=== PATIENT | female | born 1985 | race Caucasian/White ===

== ENCOUNTER → 2018-07-03 | Outpatient (CLI) | payer OTHER ==
--- NOTE | 2018-07-03 11:36 | Diagnostic Imaging Report ---
INDICATION: survey. TECHNIQUE: Multiple real-time grayscale images were obtained over the gravid uterus. COMPARISON: There are no prior studies available for comparison. FINDINGS: There is a single live fetus in breech presentation. heart motion was noted and a rate of 147 bpm was recorded. There were no abnormalities identified. The placenta is posterior and there is no previa. The amniotic fluid volume is within normal limits. The growth parameters are fairly uniform. Biometrical measurements are as follows: Biparietal 4.77 cm, age 20 weeks 3 days. Head circumference 18.05 cm, age 20 weeks 4 days. Abdominal circumference 15.91 cm, age 21 weeks 1 days. Femur length 3.47 cm, age 21 weeks 0 days. Sonographic estimate age: 20 weeks 6 days. Sonographic estimated date of delivery: 11/14/2018. Estimated Weight: 386 gm (+/- 56 gm). LMP percentile: 72%. heart rate: 147 beats per minute. number: 1 of 1. IMPRESSION: 1. There is a single live fetus approximately 20 weeks 6 days gestation + / - 1.5 weeks. EDC is 11/14/2018. 2. There are no abnormalities identified. 3. The growth parameters are fairly uniform. Dictated by: Dictated on workstation # [id number]
== END ==
LOC: RAD 10:04
PROVIDERS: ATTEND Obstetrics & Gynecology
DX: Z36.89 Encounter for other specified antenatal screening (principal); Z3A.20 20 weeks gestation of pregnancy
CPT/HCPCS: 76805

== ENCOUNTER 2018-11-19 06:00 | Inpatient (IN) | payer OTHER ==
[2018-11-19] VITALS (67 sets, daily range): BP systolic 111–170; BP diastolic 59–114
[~2018-11-19] VITALS: Ht 177.8 cm; Wt 121.3 kg
--- NOTE | 2018-11-19 06:05 | NUR ---
CRYSTAL WING presented to unit via AMBULATORY from ED, accompanied by S/O , with c/o INDUCTION. CRYSTAL WING weighed, gowned, voided, and to bed. EFHM and TOCO applied, VS taken PER THIS RN. CRYSTAL WING oriented to bed controls, call light, TV, heat, and A/C controls. FURTHER ASSESSMENTS TO FOLLOW.
[2018-11-19] MEDS ORDERED: PREN-53 PO (06:17)
[2018-11-19] MEDS ORDERED: D5 LR IV SOLUTION 1,000 ML IV ONE (06:28)
[2018-11-19] MEDS: D5 LR IV SOLUTION 1,000 ML IV SCH ×3 (06:45→20:22)
[2018-11-19 07:04] LABS: BASOPHILS % (AUTO) 0 % (0-10); EOSINOPHILS # (AUTO) 0.2 10^3/uL (0.0-0.3); EOSINOPHILS % (AUTO) 3 % (0-10); HEMATOCRIT 37 % (35-52); HEMOGLOBIN 12.9 G/DL (11.5-16.0); LYMPHOCYTES # (AUTO) 2.3 X 10^3 (1.0-4.0); LYMPHOCYTES % (AUTO) 24 % (12-44); MEAN CORPUSCULAR HEMOGLOBIN 32 PG (25-34); MEAN CORPUSCULAR HGB CONC 35 G/DL (32-36); MEAN CORPUSCULAR VOLUME 89 FL (80-99); MEAN PLATELET VOLUME 10.6 FL (7.4-10.4); MONOCYTES # (AUTO) 0.8 X 10^3 (0.0-1.0); MONOCYTES % (AUTO) 9 % (0-12); NEUTROPHILS # (AUTO) 6.3 X 10^3 (1.8-7.8); NEUTROPHILS % (AUTO) 65 % (42-75); PLATELET COUNT 207 10^3/uL (130-400); RED CELL DISTRIBUTION WIDTH 13.6 % (10.0-14.5); WHITE BLOOD COUNT 9.7 10^3/uL (4.3-11.0)
[2018-11-19] MEDS ORDERED: OXYTOCIN/NORMAL SALINE 500 ML IV SCH (07:05)
--- NOTE | 2018-11-19 07:10 | History & Physical-OB ---
OB - Chief Complaint & HPI Date/Time Date of Admission: Date of Admission: Nov 19, 2018 at 06:02 Date seen by a Provider: Nov 19, 2018 Time Seen by a Provider: 07:10 Chief Complaint/History OB-Reason for Admission/Chief: Induction of Labor Hx : 1 Hx Para: 0 Expected Date of Delivery: Nov 17, 2018 Gestational Age in Weeks: 40 Gestational Age in Days: 2 Indication for induction: post dates Admission Nurse Assessment Rev: Yes History of Labs A pos Antibody neg RI RPR NR HBsAg NR HIV NR GC neg GBS neg Allergies and Home Medications Allergies Coded Allergies: adhesive tape (Verified Allergy, Unknown, 11/19/18) Home Medications [id number]/Iron Fumarate/FA/Dss 1 Each Tablet, 1 EACH PO DAILY, (Reported) Patient Home Medication List Home Medication List Reviewed: Yes OB - History Hx of Present Care: Yes Ultrasounds: Normal mid trimester US Obstetrical Complications: None Medical Complications: None Patient Past Medical History n/a OB - Admission Exam Physical Exam HEENT: NCAT Heart: Rhythm Normal Lungs: Clear Abdomen: Gravid Extremities: Normal Reflexes: Normal Cervical Dilatation: 3cm Effacement: 75% Station: -1 Membranes: Intact Heart Rate: 130's Accelerations: Accelerations Present Decelerations: No Decelerations Short Term Variability: Present Rip Tailer Variability: Average (6-25) Contractions on Admission: 6-10 Minutes Apart Labs Laboratory Tests Test 11/19/18 06:45 Range/Units White Blood Count 9.7 4.3-11.0 10^3/uL Red Blood Count 4.10 L 4.35-5.85 10^6/uL Hemoglobin 12.9 11.5-16.0 G/DL Hematocrit 37 35-52 % Mean Corpuscular Volume 89 80-99 FL Mean Corpuscular Hemoglobin 32 25-34 PG Mean Corpuscular Hemoglobin Concent 35 32-36 G/DL Red Cell Distribution Width 13.6 10.0-14.5 % Platelet Count 207 130-400 10^3/uL Mean Platelet Volume 10.6 H 7.4-10.4 FL Neutrophils (%) (Auto) 65 42-75 % Lymphocytes (%) (Auto) 24 12-44 % Monocytes (%) (Auto) 9 0-12 % Eosinophils (%) (Auto) 3 0-10 % Basophils (%) (Auto) 0 0-10 % Neutrophils # (Auto) 6.3 1.8-7.8 X 10^3 Lymphocytes # (Auto) 2.3 1.0-4.0 X 10^3 Monocytes # (Auto) 0.8 0.0-1.0 X 10^3 Eosinophils # (Auto) 0.2 0.0-0.3 10^3/uL Basophils # (Auto) 0.0 0.0-0.1 10^3/uL OB - Assessment/Plan/Diagnosis Assessment Assessment: induction of labor Admission Dx 33 yo @40.2 Induction of labor Post dates GBS neg Admission Status: Inpatient Order (span 2 midnights) Reason for Inpatient Admission: Induction of labor at term Plan Plan: Induction Induction Method: JELLY TOVAR DO Nov 19, 2018 07:10
--- NOTE | 2018-11-19 07:30 | NUR ---
REPORT FROM RAMIREZ PONCE.
[2018-11-19] MEDS ORDERED: LIDOCAINE/EPI 2% 1:200,00 (XYLOCAINE) 10 ML VIAL ONE (10:16)
[2018-11-19] MEDS ORDERED: SUFENTA 0.6MCG/ML BUPIVA 0.125 100 ML ONE (14:20)
--- NOTE | 2018-11-19 15:15 | NUR ---
BBANDRES CRNA here for epidural placement. Procedure explained, consent reviewed and signed by anesthesia. Questions answered to patient's satisfaction. Time out taken to verify correct patient/procedure. Patient up to side of bed, assisted into sitting position. Betadine prep done x3 and sterile drape applied. Local done, see anesthesia record. Test dose given, see anesthesia record for drug and dosage. Epidural catheter secured in place. Epidural placement complete. Assisted back into bed, monitors adjusted. Epidural dosed, see anesthesia record. Epidural of Sufenta/Bupvicaine @_12 cc/hr stated per pump. Patient tolerated procedure well.
[2018-11-19] MEDS: EPIDURAL (SUFENTA 0.6MCG/ML BUPIVA 0.125%) 100 ML BAG EPI PRN ×2 (15:30→23:11)
[2018-11-19] MEDS ORDERED: fentaNYL INJECTION 100 MCG/2 ML AMP ONE (15:53)
[2018-11-19] MEDS ORDERED: BUPIVACAINE 0.25% 30 ML (SENSORCAINE) VIAL ONE (16:08)
[2018-11-19] MEDS ORDERED: LACTATED RINGERS 1,000 ML IV ONE (16:24)
[2018-11-19] MEDS ORDERED: ONDANSETRON 4 MG/2 ML (SDV) Z0FRAN IV PRN (16:30)
[2018-11-19] MEDS ORDERED: diphenhydrAMINE 50 MG/ML INJ (BENADRYL) IV PRN (16:30)
[2018-11-19] MEDS ORDERED: NALOXONE 0.4 MG/ML 1 ML (NARCAN) VIAL IV PRN ×2 (16:30)
[2018-11-19] MEDS ORDERED: METOCLOPRAMIDE INJ 10 MG/2 ML (REGLAN) IV PRN (16:30)
[2018-11-19] MEDS: CATHETER FLUSH 10 ML SYR IV SCH ×2 (20:22→23:11)
[2018-11-20] VITALS (17 sets, daily range): BP systolic 104–153; BP diastolic 56–97
[2018-11-20] MEDS ORDERED: METOCLOPRAMIDE INJ 10 MG/2 ML (REGLAN) ONE (02:24)
[2018-11-20] MEDS ORDERED: CITRIC ACID/SOB CIT (BICITRA) 30 ML UDC ONE (02:24)
[2018-11-20] MEDS ORDERED: FAMOTIDINE 20MG/2ML IV (PEPCID) ONE (02:24)
[2018-11-20] MEDS ORDERED: AMPICILLIN FOR IV USE 2,000 MG VIAL ONE (02:26)
[2018-11-20] MEDS ORDERED: ceFAZolin 2 GM/50 ML NS 50 ML ONE (02:27)
--- NOTE | 2018-11-20 02:51 | Progress Note ---
Standard Progress Note Progress Notes/Assess & Plan Date Seen by a Provider: Nov 20, 2018 Time Seen by a Provider: 14:35 Progress/Assessment & Plan Patient progressed to complete and 0 station and has pushed for an hour without progression of the skull, and swelling of the caput. The patient is showing signs of exhaustion, and FHR is now showing variables with pushing. We have tried pushing in different positions without any change in progression. I discussed with patient the option of laboring down, continuing to push, or proceeding with PLTCS. Risk reviewed in detail and consent was obtained after patient discussion with her . Will proceed with PLTCS for CPD at presentation of OR staff. JELLY HILLIARD DO Nov 20, 2018 02:51
[2018-11-20] MEDS ORDERED: MEASLES,MUMPS,RUBELLA 1 EA INJ SC SCH (03:00)
[2018-11-20] MEDS ORDERED: ONDANSETRON 4 MG/2 ML (SDV) Z0FRAN IVP PRN (03:00)
[2018-11-20] MEDS ORDERED: TETANUS,DIPTH,PERTUSS P/F (BOOSTRIX) 0.5 ML VIAL IM SCH (03:00)
[2018-11-20] MEDS ORDERED: HYDROmorphone 2 MG/ML VIAL (DILAUDID) IV PRN (03:00)
--- NOTE | 2018-11-20 03:02 | Discharge Inst-Women's Service ---
Discharge Inst-Women's Serv Depart Medication/Instructions New, Converted or Re-Newed RX: RX on Chart Final Diagnosis POD 2 PLTCS Problems Reviewed?: Yes Consults/Follow Up Additional Follow Up: Yes Orders/Referrals Dr. Li in 7-10 days and in 6 weeks. Activity Activity: Activity as Tolerated Driving Instructions: No Driving for 1 Week NO SMOKING: NO SMOKING Nothing Inside Vagina: No Douching, No Cleora, No Tampons Diet Discharge Diet: No Restrictions Symptoms to Report to : Bleeding Excessive, Pain Increased, Fever Over 101 Degrees F, Vaginal Bleeding Increase, Questions/Concerns For Any Problems or Questions: Contact Your Physician Skin/Wound Care Infection Signs and Symptoms: Increased Redness, Foul Odor of Wound, Increased Drainage, Skin Itchy or Has a Rash, Increased Swelling, Temperature Above 101 F Operative Area Clean and Dry: Keep Incision Clean/Dry Stitches/Alfredo/Dermabond: Dermabond, Care of Stitches Bathing Instructions: JELLY Hernandez DO Nov 20, 2018 03:01
[2018-11-20] MEDS ORDERED: DOCU100C37 PO (03:10)
[2018-11-20] MEDS ORDERED: IBUP-844 PO (03:10)
[2018-11-20] MEDS ORDERED: ACHD5005 PO (03:10)
[2018-11-20] MEDS ORDERED: LIDOCAINE PF 2% 5 ML (XYLOCAINE) VIAL ONE ×3 (03:12→04:01)
[2018-11-20] MEDS ORDERED: fentaNYL INJECTION 100 MCG/2 ML AMP ONE ×2 (03:13→03:46)
[2018-11-20] MEDS ORDERED: KETOROLAC 30 MG/ML VIAL ONE (04:24)
[2018-11-20] MEDS ORDERED: NS (IVPB) 100 ML ONE (04:26)
[2018-11-20] MEDS ORDERED: BUPIVACAINE 0.5% 30 ML (SENSORCAINE) VIAL ONE (04:32)
[2018-11-20] MEDS: KETOROLAC 30 MG/ML VIAL IVP PRN ×3 (04:41→18:20)
--- NOTE | 2018-11-20 05:22 | NUR ---
Pt moved to post room, 307 via cart from recovery after . performed after 1 hour of vigrous pushing by pt with no result. position presented OP and with expectation of large infant called per Pt and Dr Li. Pt comfortable at this time with infant in arms. Pt feeling some cramping with feeding.
--- NOTE | 2018-11-20 05:58 | OPERATIVE REPORT ---
DATE OF SERVICE: PREOPERATIVE DIAGNOSES: 1. A 33-year-old G1, P0 at 40 weeks and 3 days gestation. 2. Cephalopelvic disproportion. POSTOPERATIVE DIAGNOSES: 1. A 33-year-old G1, P0 at 40 weeks and 3 days gestation. 2. Cephalopelvic disproportion. PROCEDURE: Primary low transverse section. SURGEON: Oneal Li DO ANESTHESIA: Epidural, which was bolused. ESTIMATED BLOOD LOSS: 500 mL. URINE OUTPUT: 300 mL, clear at the end of the procedure. FLUIDS: 1000 mL of lactated Ringer's solution. FINDINGS: A live male , weighing 10 pounds 6 ounces, Apgars of 9 and 9. Grossly normal appearing uterus, bilateral fallopian tubes and ovaries. SPECIMEN SENT: Placenta. INDICATIONS FOR PROCEDURE: This patient was admitted for induction of labor with a favorable cervix and a Le score of 11 for postdates. She was 3 cm on admission for induction. AROM was performed. Pitocin augmentation was used throughout the day. An epidural was received for analgesia and she progressed to complete and 0 station and proceeded with not only laboring down, but pushing for over an hour without any progression in station. Due to concerns of cephalopelvic disproportion, I discussed with the patient proceeding with delivery. Risks of procedure were discussed with the patient in detail and all of her questions were answered with her present in the preoperative area, consent was obtained. The patient was then taken to the operating room. OPERATIVE REPORT IN DETAIL: Once in the operating room, a spinal epidural analgesia was bolused and found to be adequate. She was placed in supine position with a leftward tilt, prepped and draped in normal sterile fashion. After anesthesia was tested and timeout was performed, a Pfannenstiel skin incision was made with a knife and carried down to underlying fascia using Bovie cautery. The fascial incision extended laterally using Bovie cautery. Superior aspect of fascial incision was then grasped with Tanisha clamps, tented up and dissected off the underlying rectus muscles. The inferior aspect of the fascial incision was then grasped with Tanisha clamps, tented up and dissected off the underlying rectus muscles. The rectus muscles were dissected down in the midline using Metzenbaum scissors, which exposed the peritoneum, which I entered bluntly and extended using blunt traction. An Gerald ring retractor was placed in the peritoneal incision, which offered excellent lateral sidewall retraction. I then made a low transverse incision to the vesicouterine peritoneum and bluntly dissected off the lower uterine segment, creating a bladder flap. The myotomy was then continued until membranes were encountered, at which point, I extended the uterine incision laterally and superiorly using bandage scissors. The infant was found in the vertex presentation, occiput posterior. I put my hand beneath the 's head and elevated up the incision where it was delivered through the incision to the point of the brow, but there is retention of the head in the incision. I asked to extract the from that point using very gentle suction with the [employer] suction extractor, but this was the minimal amount of force just enough to completely deliver the head. The nares and oropharynx were then bulb suctioned at delivery. Anterior and posterior shoulders were delivered. was then brought to the operative field where the cord was doubly clamped and cut and was handed off to waiting nurses in attendance. Cord blood was collected; 3-vessel cord with intact placenta was delivered spontaneously thereafter. IV Pitocin was initiated to facilitate uterine contraction. Uterine fundus became firm with bimanual massage. Uterus was then exteriorized and cleared off all endometrial clots and debris. I then proceeded with closing the uterine incision using 0 Vicryl suture in running locked fashion. Second layer of imbricating 0 Monocryl was placed. Excellent hemostasis was noted after doing this. I then placed the uterus back within the pelvis and copiously irrigated the pelvis using normal saline. Once again, there was no active bleeding noted from any of my dissection planes. I placed Interceed antiadhesive over my low transverse incision and proceeded with closing the peritoneum using 3-0 Vicryl suture in a running fashion. Rectus muscle was reapproximated using 3-0 Vicryl suture in interrupted fashion. The fascia was reapproximated using 0 Vicryl suture in a running fashion. The subcutaneous tissue was reapproximated using 3-0 plain in an interrupted subcutaneous stitch and the skin was reapproximated using 4-0 Monocryl in a running subcuticular. Dermabond was applied to incision. A sterile dressing was adhesed with white tape. The patient tolerated the procedure well and was taken to recovery area in stable condition. Lap and sponge counts were correct at the end of the procedure. Instrument count was correct as well. Two grams of Ancef was given preoperatively for infection prophylaxis. Job ID: [id number] DocumentID: [id number] Dictated Date: 11/20/2018 04:36:37 Refrigeration Mechanic Helper Date: 11/20/2018 05:57:57 Dictated By: DO PATRICK PEARCE
[2018-11-20] MEDS ORDERED: CATHETER FLUSH 10 ML SYR IV SCH (06:00)
[2018-11-20] MEDS: OXYTOCIN/NORMAL SALINE 500 ML IV SCH ×2 (06:05→11:10)
[2018-11-20] MEDS: CATHETER FLUSH 10 ML SYR IV SCH (06:06)
[2018-11-20] MEDS: IBUPROFEN 600 MG (MOTRIN) TAB PO SCH (06:08)
[2018-11-20] MEDS: DOCUSATE SODIUM 100 MG (COLACE) CAP PO SCH ×2 (08:10→20:32)
[2018-11-20] MEDS: HYDROcodone/APAP 5 MG/325 MG (LORTAB) TAB PO PRN ×3 (08:15→20:32)
--- NOTE | 2018-11-20 12:00 | NUR ---
Up to BR with assistance x1. Gait steady, denies dizziness. Small amount of lochia noted running down leg. Voids 200ml. No clots noted. Pericare provided. New SCDs put on upon return to bed. Tarsha. well.
--- NOTE | 2018-11-20 12:11 | Anesthesia-Regional Post-Op ---
Regional Patient Condition Mental Status: Alert, Oriented x3 Circulation: Same as Pre-Op Headache: Absent Sensation: Full Recovery Motor Block: Absent Post Op Complications Complications None Follow Up Care/Instructions Patient Instructions None needed. Anesthesia/Patient Condition Patient is doing well, C/O abd pain, stable vital signs, no apparent adverse anesthesia problems. She doesn't believe the TAP block worked well due to her abdominal pain as her sensation after labor epidural returned. She is ambulating without difficulty. CY AMIN DO Nov 20, 2018 12:11
--- NOTE | 2018-11-20 13:50 | NUR ---
Complains of vaginal bleeding. Fundal check done. Fundus firm and under 1. Scant amount of lochia noted on pad.
[2018-11-20] MEDS ORDERED: SIMETHICONE 80 MG (MYLICON) CHEW ONE (19:37)
--- NOTE | 2018-11-20 19:38 | NUR ---
bedside report received from Kuldeep. plan of care discussed with pt. pt is getting ready to eat meal. Will put lesson instructor light when finished to perform assessment.
[2018-11-20] MEDS ORDERED: SIMETHICONE 80 MG (MYLICON) CHEW PO PRN (19:45)
--- NOTE | 2018-11-20 20:46 | NUR ---
assessment completed. pt denies any needs at this time. will continue to monitor.
[2018-11-21] MEDS: KETOROLAC 30 MG/ML VIAL IVP PRN (00:27)
[2018-11-21 01:00] VITALS: BP 110/70
[2018-11-21] MEDS: HYDROcodone/APAP 5 MG/325 MG (LORTAB) TAB PO PRN ×4 (02:46→20:57)
--- NOTE | 2018-11-21 05:09 | NUR ---
pt sent nb back to [facility] to rest. pt wishes to leave dsg on at this time. she plans to shower after the 8am feeding and then have dsg removed. pt also wishes to not have bedside report this am so she can rest.
[2018-11-21] MEDS: IBUPROFEN 600 MG (MOTRIN) TAB PO SCH ×4 (05:27→23:57)
[2018-11-21 06:14] LABS: BASOPHILS % (AUTO) 0 % (0-10); EOSINOPHILS # (AUTO) 0.1 10^3/uL (0.0-0.3); EOSINOPHILS % (AUTO) 1 % (0-10); HEMATOCRIT 31 % (35-52); HEMOGLOBIN 10.6 G/DL (11.5-16.0); LYMPHOCYTES # (AUTO) 2.3 X 10^3 (1.0-4.0); LYMPHOCYTES % (AUTO) 16 % (12-44); MEAN CORPUSCULAR HEMOGLOBIN 31 PG (25-34); MEAN CORPUSCULAR HGB CONC 34 G/DL (32-36); MEAN CORPUSCULAR VOLUME 91 FL (80-99); MEAN PLATELET VOLUME 10.5 FL (7.4-10.4); MONOCYTES % (AUTO) 7 % (0-12); NEUTROPHILS # (AUTO) 10.8 X 10^3 (1.8-7.8); NEUTROPHILS % (AUTO) 76 % (42-75); PLATELET COUNT 167 10^3/uL (130-400); RED CELL DISTRIBUTION WIDTH 14.2 % (10.0-14.5); WHITE BLOOD COUNT 14.2 10^3/uL (4.3-11.0)
[2018-11-21] MEDS: DOCUSATE SODIUM 100 MG (COLACE) CAP PO SCH ×2 (08:21→20:57)
[2018-11-21 08:25] VITALS: BP 126/81
--- NOTE | 2018-11-21 08:30 | NUR ---
THIS RN TO BEDSIDE, SELF INTRODUCED. MEDS GIVEN PO; SEE EMAR FOR FURTHER. VS OBTAINED. PT'S S/O AND FATHER AT THE BEDSIDE. SHOWER SET UP. PT PREPPING TO B/F , NIPPLE SHIELD GIVEN PER REQUEST. QUESTIONS ANSWERED. FRESH ICE WATER PROVIDED. CALL LIGHT WITHIN REACH.
--- NOTE | 2018-11-21 09:04 | NUR ---
PT GETTING UP TO SHOWER. QUESTIONS ANSWERED RE: SHOWER AND INCISION. S/O AT THE BEDSIDE. NO FURTHER NEEDS VOICED.
--- NOTE | 2018-11-21 10:40 | NUR ---
PT , MINIMAL ASSISTANCE PROVIDED. SUCCESSFUL LATCH AND ACTIVE SUCKLING NOTED. S/O AT THE BEDSIDE.
--- NOTE | 2018-11-21 11:30 | NUR ---
SHOWER COMPLETE. PT REMOVED INCISIONAL DRESSING WHILE SHE WAS SHOWERING. ASSESSMENT COMPLETED; SEE INTERVENTION FOR FURTHER. FLUFF GAUZE IN PLACE PER REQUEST FOR COMFORT. CALL LIGHT WITHIN REACH.
[2018-11-21 12:43] VITALS: BP 125/73
--- NOTE | 2018-11-21 12:45 | NUR ---
PT IN BED, HOLDING . VISITOR AND MOTHER AT THE BEDSIDE. ROUTINE MOTRIN GIVEN PO; SEE EMAR FOR FURTHER. VS OBTAINED. NO NEEDS VOICED.
--- NOTE | 2018-11-21 14:55 | NUR ---
PT SITTING UP IN BED, (1) LORTAB GIVEN PER REQUEST; SEE EMAR FOR FURTHER. PT'S S/O, MOTHER AND A VISITOR AT THE BEDSIDE. LUNCH TRAY REMOVED FROM ROOM. NO FURTHER NEEDS VOICED.
--- NOTE | 2018-11-21 15:06 | NUR ---
DR. HILLIARD TO PT'S BEDSIDE.
--- NOTE | 2018-11-21 18:22 | NUR ---
PT UP AMBULATING HALLWAYS WITH S/O.
[2018-11-21 18:30] VITALS: BP 111/68
--- NOTE | 2018-11-21 19:30 | NUR ---
Bedside report received from Drew. pt and family sitting around room. patient . plan of care discussed. questions answered concerning 2nd . 2nd night paper provided. pt/family deny any further needs will continue to monitor.
--- NOTE | 2018-11-21 20:44 | Postpartum Progress Note ---
Note Note Day # 1 Subjective: Patient is without complaints. Ambulating, voiding. Tolerating a regular diet without nausea or vomiting. Normal lochia. Pain is well controlled with oral pain medications. Objective: Physical Exam: General - Alert and oriented, no apparent distress Abdomen - Soft, appropriately tender to palpation, non-distended, fundus firm at umbilicus Extremities - no edema, negative Cristiano's bilaterally Incision- c/d/i Assessment: POD 1 PLTCS Acute blood loss anemia Plan: Routine care. Encourage breast feeding. Encourage ambulation. Ferrous sulfate supplementation. Plan for discharge tomorrow Vitals - Labs Vital Signs - I&O Vital Signs Date Time Temp Pulse Resp B/P (MAP) Pulse Ox O2 Delivery O2 Flow Rate FiO2 11/21/18 18:30 97.9 100 18 111/68 (82) 97 Room Air 11/21/18 12:43 98.3 110 18 125/73 (90) 98 Room Air 11/21/18 08:25 97.9 92 18 126/81 (96) 95 Room Air 11/21/18 01:00 97.9 88 18 110/70 (83) Room Air 11/20/18 20:47 98.0 104 18 114/65 (81) 97 Room Air I & O 11/21/18 07:00 Intake Total 3000 ml Output Total 4425 ml Balance -1425 ml Labs Laboratory Tests 11/21/18 05:55: White Blood Count 14.2H, Red Blood Count 3.40L, Hemoglobin 10.6L, Hematocrit 31L , Mean Corpuscular Volume 91, Mean Corpuscular Hemoglobin 31, Mean Corpuscular Hemoglobin Concent 34, Red Cell Distribution Width 14.2, Platelet Count 167, Mean Platelet Volume 10.5H, Neutrophils (%) (Auto) 76H, Lymphocytes (%) (Auto) 16, Monocytes (%) (Auto) 7, Eosinophils (%) (Auto) 1, Basophils (%) (Auto) 0, Neutrophils # (Auto) 10.8H, Lymphocytes # (Auto) 2.3, Monocytes # (Auto) 1.0, Eosinophils # (Auto) 0.1, Basophils # (Auto) 0.0 JELLY HILLIARD DO Nov 21, 2018 20:44
--- NOTE | 2018-11-21 21:00 | NUR ---
pt just finished dinner. assessment completed. pt requesting more pads. pads and fresh ice water given. pt denies any further needs at this time. will continue to monitor.
[2018-11-21 21:47] VITALS: BP 121/74
[2018-11-22] MEDS: HYDROcodone/APAP 5 MG/325 MG (LORTAB) TAB PO PRN ×2 (03:24→09:32)
[2018-11-22 04:17] VITALS: BP 124/80
[2018-11-22] MEDS: IBUPROFEN 600 MG (MOTRIN) TAB PO SCH ×2 (05:30→12:27)
--- NOTE | 2018-11-22 08:12 | NUR ---
PT UP TO THE BATHROOM. RAJINDER NURSERY RN AT BEDSIDE WITH .
[2018-11-22] MEDS: DOCUSATE SODIUM 100 MG (COLACE) CAP PO SCH (09:32)
[2018-11-22 09:35] VITALS: BP 118/79
--- NOTE | 2018-11-22 09:40 | NUR ---
THIS RN TO BEDSIDE, PT UP IN ROOM BEFORE SITTING ON THE SIDE OF THE BED. MEDS GIVEN PO; SEE EMAR FOR FURTHER. VS OBTAINED. INITIAL SHIFT ASSESSMENT COMPLETED; SEE INTERVENTION FOR FURTHER. PT PREPPING TO TAKE A SHOWER. NO FURTHER NEEDS VOICED AT THIS TIME. S/O AT THE BEDSIDE. CALL LIGHT WITHIN REACH.
--- NOTE | 2018-11-22 10:16 | NUR ---
PT UP IN THE SHOWER. BED LINENS CHANGED. THIS RN CALLED TO SHOWER, PT PASSED A SMALL CLOT (QUARTER SIZE). REASSURANCE GIVEN. PT DENIES ANY FURTHER NEEDS. PT'S S/O AND MOTHER AT THE BEDSIDE.
--- NOTE | 2018-11-22 11:17 | NUR ---
ROOM SERVICE DELIVERING TRAY TO ROOM. FRANTZ MACARIO RN IS AT THE BEDSIDE.
--- NOTE | 2018-11-22 12:02 | NUR ---
PT UP AMBULATING HALLWAYS WITH S/O.
--- NOTE | 2018-11-22 12:30 | NUR ---
PT UP IN THE BATHROOM BLOW DRYING HER HAIR. ROUTINE MOTRIN GIVEN PO; SEE EMAR FOR FURTHER. FRESH ICE WATER PROVIDED. VISITORS PRESENT. NO FURTHER NEEDS VOICED.
--- NOTE | 2018-11-22 13:16 | Postpartum Progress Note ---
Note Note Day # 2 Subjective: Patient is without complaints. Ambulating, voiding. Tolerating a regular diet without nausea or vomiting. Normal lochia. Pain is well controlled with oral pain medications. Objective: Physical Exam: General - Alert and oriented, no apparent distress Abdomen - Soft, appropriately tender to palpation, non-distended, fundus firm at umbilicus Extremities - no edema, negative Cristiano's bilaterally Incision- c/d/i Assessment: POD 2 PLTCS Plan: Routine care. Encourage breast feeding. Encourage ambulation. Ferrous sulfate supplementation. Plan for discharge today Vitals - Labs Vital Signs - I&O Vital Signs Date Time Temp Pulse Resp B/P (MAP) Pulse Ox O2 Delivery O2 Flow Rate FiO2 11/22/18 09:35 97.8 94 18 118/79 (92) 97 Room Air 11/22/18 04:17 97.8 97 18 124/80 (95) 97 Room Air 11/21/18 21:47 98.0 97 18 121/74 (90) 97 Room Air 11/21/18 18:30 97.9 100 18 111/68 (82) 97 Room Air JELLY HILLIARD DO Nov 22, 2018 13:16
--- NOTE | 2018-11-22 14:15 | NUR ---
PT . S/O AND MOTHER AT THE BEDSIDE. DISCHARGE INSTRUCTIONS PROVIDED AND REVIEWED WITH PT, PT VERBALIZES UNDERSTANDING AND DENIES ANY QUESTIONS AT THIS TIME. PAPER SIGNED.
--- NOTE | 2018-11-22 15:15 | NUR ---
PT DISCHARGED FROM -[facility] TO PERSONAL AUTO VIA AMBULATORY IN STABLE CONDITION ACC BY S/O, MOTHER, AND John JEAN BAPTISTE RN.
== END 2018-11-22 15:15 | disposition home or self-care (01) | DRG 787 ==
LOC: LDRP 06:02
PROVIDERS: ADMIT Obstetrics & Gynecology; ATTEND Obstetrics & Gynecology
PROC: 10907ZC Drainage of Amniotic Fluid, Therapeutic from Products of Conception, Via Natural or Artificial Opening (ICD-10-PCS; 2018-11-19)
PROC: 10D00Z1 Extraction of Products of Conception, Low, Open Approach (ICD-10-PCS; principal; 2018-11-20 03:32)
DX: O48.0 Post-term pregnancy (principal); O65.4 Obstructed labor due to fetopelvic disproportion, unspecified; O90.81 Anemia of the puerperium; D62 Acute posthemorrhagic anemia; Z3A.40 40 weeks gestation of pregnancy; Z37.0 Single live birth; Z91.048 Other nonmedicinal substance allergy status
CPT/HCPCS: 36415; 85025; 86850; 86900; 86901; 94664

== ENCOUNTER → 2019-12-10 | Outpatient (CLI) | payer OTHER ==
[~2019-12-10] MED LIST: ACHD5005 PO; DOCU100C37 PO; IBUP-844 PO; PREN-53 PO
--- NOTE | 2019-12-10 12:42 | Diagnostic Imaging Report ---
INDICATION: survey. TECHNIQUE: Multiple real-time grayscale images were obtained over the gravid uterus. COMPARISON: None FINDINGS: There is a single live fetus in a cephalic presentation. heart rate was recorded at 152 bpm. Placenta is anterior. No previa is identified. Amniotic fluid volume appears normal. Cervical length is approximately 6.1 cm. survey demonstrates kidneys, bladder and stomach to be unremarkable. There is a four-chamber heart. There is a three-vessel cord with normal insertion. brain anatomy and spine are somewhat limited due to position. Biometrical measurements are as follows: Biparietal 4.97 cm, age 21 weeks 1 days. Head circumference 18.89 cm, age 21 weeks 2 days. Abdominal circumference 16.23 cm, age 21 weeks 3 days. Femur length 3.67 cm, age 21 weeks 5 days. Sonographic estimate age: 21 weeks 3 days. Sonographic estimated date of delivery: 04/18/2020. Estimated Weight: 423 gm (+/- 62 gm). LMP percentile: 68%. heart rate: 152 beats per minute. number: 1 of 1. IMPRESSION: Single live IUP at 21 weeks 3 days gestational age with estimated date of confinement sonographically of 04/18/2020. No complicating features are seen. survey is unremarkable, although head anatomy and spine evaluation is somewhat limited due to position. Dictated by: Dictated on workstation # [id number]
== END ==
LOC: RAD 09:47
PROVIDERS: ATTEND Obstetrics & Gynecology
DX: Z36.89 Encounter for other specified antenatal screening (principal); Z3A.21 21 weeks gestation of pregnancy
CPT/HCPCS: 76805

== ENCOUNTER 2020-04-10 05:38 | Outpatient (RCR) | payer OTHER ==
[~2020-04-10] VITALS: Ht 177.8 cm; Wt 127.3 kg
[2020-04-10] MEDS ORDERED: ceFAZolin 2 GM IV Premixed 50 ML IV ONE (11:15)
[2020-04-10] MEDS ORDERED: PNV1TABL9 PO (11:21)
== END 2020-04-10 11:25 | disposition home or self-care (01) ==
LOC: PREOP 05:38
PROVIDERS: ATTEND Obstetrics & Gynecology
DX: Z01.812 Encounter for preprocedural laboratory examination (principal); Z53.8 Procedure and treatment not carried out for other reasons

== ENCOUNTER 2020-04-17 07:08 | Inpatient (IN) | payer OTHER ==
[2020-04-17] VITALS (16 sets, daily range): BP systolic 115–136; BP diastolic 63–89
[~2020-04-17] VITALS: Ht 177.8 cm; Wt 128.9 kg
[~2020-04-17 07:08] MED LIST changes: +PNV1TABL9 PO
--- NOTE | 2020-04-17 07:14 | NUR ---
CRYSTAL WING presented to unit from Home, accompanied by , with c/o PREVIOUS Section. CRYSTAL WING weighed, gowned, voided, and to bed. EFHM and TOCO applied, VS taken. CRYSTAL WING oriented to bed controls, call light, TV, heat, and A/C controls.
--- NOTE | 2020-04-17 07:37 | History & Physical-OB ---
OB - Chief Complaint & HPI Date/Time Date of Admission: Date of Admission: Apr 17, 2020 at 07:08 Date seen by a Provider: Apr 17, 2020 Time Seen by a Provider: 07:30 Chief Complaint/History OB-Reason for Admission/Chief: Section Hx : 2 Hx Para: 1 Expected Date of Delivery: Apr 21, 2020 Gestational Age in Weeks: 39 Gestational Age in Days: 3 Indication for : desires repeat Admission Nurse Assessment Rev: Yes History of Labs A pos Antibody neg RI RPR NR HIV NR HBsAg NR GC neg GBS neg FFC DNA + for possible XXX Allergies and Home Medications Allergies Coded Allergies: adhesive tape (Verified Allergy, Unknown, 11/19/18) latex (Verified Allergy, Unknown, Rash, 04/10/20) Home Medications Pnv Cmb#21/Iron/Folic Acid 1 Each Tablet, 1 EACH PO DAILY, (Reported) Patient Home Medication List Home Medication List Reviewed: Yes OB - History Hx of Present Care: Yes Ultrasounds: Normal mid trimester US Obstetrical Complications: None Medical Complications: None Patient Past Medical History n/a Immunizations Date of Influenza Vaccine: Jan 13, 2020 OB - Admission Exam Physical Exam HEENT: NCAT Heart: Rhythm Normal Lungs: Clear Abdomen: Gravid Extremities: Normal Reflexes: Normal Membranes: Intact Heart Rate: 130's Accelerations: Accelerations Present Decelerations: No Decelerations Short Term Variability: Present Industrial Gas Service Helper Variability: Average (6-25) Contractions on Admission: >10 Minutes Apart Intensity: Mild OB - Assessment/Plan/Diagnosis Assessment Assessment: section Admission Dx 34 yo @ 39 weeks Previous XXX noted on FFC DNA GBS neg Admission Status: Inpatient Order (span 2 midnights) Reason for Inpatient Admission: Repeat Plan Plan: Section JELLY HILLIARD DO Apr 17, 2020 07:37
[2020-04-17] MEDS ORDERED: CATHETER FLUSH 10 ML SYR IV PRN (08:00)
[2020-04-17] MEDS ORDERED: FAMOTIDINE 20MG/2ML IV (PEPCID) IV ONE (08:00)
[2020-04-17] MEDS ORDERED: ONDANSETRON 4 MG/2 ML (SDV) Z0FRAN IVP PRN (08:00)
[2020-04-17] MEDS ORDERED: CITRIC ACID/SOB CIT (BICITRA) 30 ML UDC PO ONE (08:00)
[2020-04-17] MEDS ORDERED: KETOROLAC 30 MG/ML VIAL IV SCH (08:00)
[2020-04-17] MEDS ORDERED: TETANUS,DIPTH,PERTUSS P/F (BOOSTRIX) 0.5 ML VIAL IM SCH (08:00)
[2020-04-17] MEDS ORDERED: MEASLES,MUMPS,RUBELLA 1 EA INJ SC SCH (08:00)
[2020-04-17] MEDS ORDERED: METOCLOPRAMIDE INJ 10 MG/2 ML (REGLAN) IV ONE (08:00)
[2020-04-17] MEDS ORDERED: ceFAZolin 2 GM IV Premixed 50 ML IV ONE (08:00)
[2020-04-17] MEDS: LACTATED RINGERS 1,000 ML IV PRN ×2 (08:04→08:56)
[2020-04-17 08:17] LABS: BASOPHILS % (AUTO) 0 % (0-10); EOSINOPHILS # (AUTO) 0.3 10^3/uL (0.0-0.3); EOSINOPHILS % (AUTO) 3 % (0-10); HEMATOCRIT 35 % (35-52); HEMOGLOBIN 11.6 g/dL (11.5-16.0); LYMPHOCYTES # (AUTO) 2.4 10^3/uL (1.0-4.0); LYMPHOCYTES % (AUTO) 24 % (12-44); MEAN CORPUSCULAR HEMOGLOBIN 30 pg (25-34); MEAN CORPUSCULAR HGB CONC 34 g/dL (32-36); MEAN CORPUSCULAR VOLUME 88 fL (80-99); MEAN PLATELET VOLUME 10.4 fL (9.0-12.2); MONOCYTES # (AUTO) 0.7 10^3/uL (0.0-1.0); MONOCYTES % (AUTO) 7 % (0-12); NEUTROPHILS # (AUTO) 6.5 10^3/uL (1.8-7.8); NEUTROPHILS % (AUTO) 65 % (42-75); PLATELET COUNT 244 10^3/uL (130-400); WHITE BLOOD COUNT 10.1 10^3/uL (4.3-11.0)
--- NOTE | 2020-04-17 09:07 | Discharge Inst-Women's Service ---
Discharge Inst-Women's Serv Depart Medication/Instructions New, Converted or Re-Newed RX: RX on Chart Problems Reviewed?: Yes Consults/Follow Up Additional Follow Up: Yes Activity Activity: Activity as Tolerated NO SMOKING: NO SMOKING Nothing Inside Vagina: No Douching, No [address], No Tampons Diet Discharge Diet: No Restrictions Symptoms to Report to : Bleeding Excessive, Pain Increased, Fever Over 101 Degrees F, Vaginal Bleeding Increase, Questions/Concerns For Any Problems or Questions: Contact Your Physician Skin/Wound Care Infection Signs and Symptoms: Increased Redness, Foul Odor of Wound, Increased Drainage, Skin Itchy or Has a Rash, Increased Swelling, Temperature Above 101 F Operative Area Clean and Dry: Keep Incision Clean/Dry Stitches/[place]/Dermabond: Dermabond, Care of Stitches Bathing Instructions: JELLY Hernandez DO Apr 17, 2020 09:07
[2020-04-17] MEDS ORDERED: IBUP-844 PO (09:12)
[2020-04-17] MEDS ORDERED: DCS100C PO (09:12)
[2020-04-17] MEDS ORDERED: ACHD5005 PO (09:12)
[2020-04-17] MEDS ORDERED: fentaNYL INJECTION 100 MCG/2 ML AMP ONE (09:34)
[2020-04-17] MEDS ORDERED: OXYTOCIN PRE-MIX DRIP 500 ML IV ONE (09:34)
--- NOTE | 2020-04-17 10:08 | NUR ---
Patient to OB OR via ambulation accompanied by OR staff.
[2020-04-17] MEDS ORDERED: ONDANSETRON 4 MG/2 ML (SDV) Z0FRAN ONE (10:43)
[2020-04-17] MEDS: OXYTOCIN PRE-MIX DRIP 500 ML IV SCH ×2 (10:47→13:18)
[2020-04-17] MEDS ORDERED: PHENYLEPHRINE 100 MCG/ML 10 ML (ANESTHESIA) SYR ONE (11:09)
[2020-04-17] MEDS: KETOROLAC 30 MG/ML VIAL IV SCH ×3 (11:23→23:17)
[2020-04-17] MEDS ORDERED: BUPIVACAINE 0.5% 30 ML (SENSORCAINE) VIAL ONE (11:30)
[2020-04-17] MEDS ORDERED: METOCLOPRAMIDE 10 MG (REGLAN) TAB PO SCH (12:00)
--- NOTE | 2020-04-17 12:05 | NUR ---
Patient arrived to Women's Services room 313 via bed from OB PAR. Patient oriented to room and report received from Melvin Sinclair RN. Care of patient assumed.
[2020-04-17] MEDS: DOCUSATE SODIUM 100 MG (COLACE) CAP PO SCH ×2 (12:47→21:26)
[2020-04-17] MEDS: METOCLOPRAMIDE 10 MG (REGLAN) TAB PO SCH ×3 (12:47→23:21)
[2020-04-17] MEDS ORDERED: CATHETER FLUSH 10 ML SYR IV SCH (14:00)
--- NOTE | 2020-04-17 14:00 | NUR ---
Patient assisted up to restroom. + void noted. Pericare completed and clean pad and panties applied. Patient ambulated back to bed without difficulty. Plan of care reviewed with patient. Patient verbalizes understanding and questions answered.
--- NOTE | 2020-04-17 14:16 | NUR ---
Incentive spirometry reviewed with patient. Patient able to return demonstration.
--- NOTE | 2020-04-17 17:20 | NUR ---
IV saline locked.
--- NOTE | 2020-04-17 18:31 | OPERATIVE REPORT ---
DATE OF SERVICE: PREOPERATIVE DIAGNOSES: 1. A 34-year-old G2, P1 at 39 weeks gestation. 2. Previous section. POSTOPERATIVE DIAGNOSES: 1. A 34-year-old G2, P1 at 39 weeks gestation. 2. Previous section. PROCEDURE: Repeat low transverse section. SURGEON: Oneal Li DO DROP BOARD WORKER: Lizzie Phipps DNP, who was necessary for manipulation and retraction throughout the procedure. ANESTHESIA: Spinal. ESTIMATED BLOOD LOSS: 500 mL. URINE OUTPUT: 50 mL clear at the end of the procedure. FLUIDS: 1400 mL lactated Ringer's solution. FINDINGS: A live female infant weighing 9 pounds 8 ounces, Apgars of 8 and 9. Grossly normal appearing uterus, bilateral fallopian tubes and ovaries. SPECIMEN SENT: Placenta. INDICATIONS FOR PROCEDURE: This 34-year-old female is a patient who had sought care in my office. She had a previous and we had discussed in the office proceeding with repeat . Throughout her care, we discussed the repeat risks and benefits as well as the alternatives, risks, of including risk of bleeding, infection, damage to surrounding structures including, but not limited to bowel, bladder, ureter, kidneys, possible need for reoperation, postoperative complications that may occur, risk from anesthesia and even were all discussed with the patient in detail. 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 Otherwise, her was uncomplicated. For this reason, we did surveillance throughout the third trimester, which was all within normal limits. After all the patient's questions were answered, consent was obtained in the preoperative area, the patient was taken to the operating room. OPERATIVE REPORT IN DETAIL: Once in the operating room, spinal analgesia was found to be adequate, placed in the supine position with leftward tilt, prepped and draped in normal sterile fashion where a timeout was performed and anesthesia was tested. Then made a Pfannenstiel skin incision through the previously existing scar using knife and carried down to underlying fascia using Bovie cautery. The fascial incision extended laterally using Bovie cautery. Superior aspect of fascial incision was then grasped with Tanisha clamps, tented up and dissected off the underlying rectus muscles. The inferior aspect of the fascial incision was then grasped with Tanisha clamps, tented up and dissected off the underlying rectus muscles. Rectus muscles were then dissected down the midline using Mooney scissors, which exposed the peritoneum, which I entered bluntly and extended using blunt traction. Gerald ring retractor was placed in the peritoneal incision, which offered excellent lateral sidewall retraction. I then identified the lower uterine segment, which was found to be thinned out and make a low transverse incision through the vesicouterine peritoneum and bluntly dissected off the lower uterine segment. I then proceeded with myotomy until membranes were visualized, at which point I extended the uterine incision laterally and superiorly using bandage scissors. Amniotomy was performed using Allis clamp. Clear fluid was noted. Infant was found in vertex presentation. With gentle fundal pressure, the 's head was elevated up the incision. I am unable to deliver the infant's head through the incision due to the size of the incision and size the infant's head. I do place a Kiwi vacuum extractor down the flexion point and able to easily deliver the 's head through the incision at that point using some gentle traction with the Kiwi vacuum extractor. Once the head was delivered, suction was released from the suction cup and nares and oropharynx were bulb suctioned. Anterior and posterior shoulders were delivered after nuchal cord was reduced x1 and the infant was then brought to the operative field with cord doubly clamped and cut and infant was handed off to waiting nurses in attendance. Cord blood was collected. Three-vessel cord with intact placenta was delivered spontaneously thereafter. IV Pitocin was initiated to facilitate uterine contraction. Uterine fundus confirmed by manual massage. Uterus was then exteriorized and cleared of endometrial clots and debris. I then proceeded to close the uterine incision using 0 Vicryl suture in running locked fashion. Second layer of imbricating 0 Monocryl was placed. Excellent hemostasis was noted after doing this. I then placed the uterus back in the pelvis and copiously irrigated the pelvis using normal saline. Once again, no active bleeding noted from any of my dissection planes. I placed Interceed antiadhesive over my low transverse incision and then removed the Gerald ring retractor. The peritoneum was then reapproximated using 3-0 Vicryl suture in running fashion. Rectus muscle reapproximated using 3-0 Vicryl suture in interrupted fashion. The fascia was reapproximated using 0 Vicryl suture in running fashion. Subcutaneous tissue was reapproximated using 3-0 plain in an interrupted subcutaneous stitch and skin reapproximated using 4-0 Monocryl running subcuticular. Dermabond was applied to incision and sterile dressing with adhesive white tape. The patient tolerated the procedure well and was taken to recovery area in stable condition. Lap and sponge counts were correct at the end of procedure. Instrument count was correct as well. Two grams of Ancef given preoperatively for infection prophylaxis. Job ID: [id number] DocumentID: [id number] Dictated Date: 04/17/2020 11:06:35 Claims Director Date: 04/17/2020 18:31:02 Dictated By: DO PATRICK PEARCE
--- NOTE | 2020-04-17 19:20 | NUR ---
Report to Shaq Horn RN.
[2020-04-17] MEDS: HYDROcodone/APAP 5 MG/325 MG (LORTAB) TAB PO PRN (21:26)
[2020-04-18] MEDS: METOCLOPRAMIDE 10 MG (REGLAN) TAB PO SCH ×4 (04:38→22:25)
[2020-04-18] MEDS: KETOROLAC 30 MG/ML VIAL IV SCH (04:38)
[2020-04-18 04:45] VITALS: BP 123/67
[2020-04-18 06:29] LABS: BASOPHILS % (AUTO) 0 % (0-10); EOSINOPHILS # (AUTO) 0.2 10^3/uL (0.0-0.3); EOSINOPHILS % (AUTO) 2 % (0-10); HEMATOCRIT 32 % (35-52); HEMOGLOBIN 10.8 g/dL (11.5-16.0); LYMPHOCYTES # (AUTO) 2.3 10^3/uL (1.0-4.0); LYMPHOCYTES % (AUTO) 22 % (12-44); MEAN CORPUSCULAR HEMOGLOBIN 30 pg (25-34); MEAN CORPUSCULAR HGB CONC 34 g/dL (32-36); MEAN CORPUSCULAR VOLUME 89 fL (80-99); MEAN PLATELET VOLUME 10.3 fL (9.0-12.2); MONOCYTES # (AUTO) 0.8 10^3/uL (0.0-1.0); MONOCYTES % (AUTO) 8 % (0-12); NEUTROPHILS # (AUTO) 7.3 10^3/uL (1.8-7.8); NEUTROPHILS % (AUTO) 67 % (42-75); PLATELET COUNT 195 10^3/uL (130-400); WHITE BLOOD COUNT 10.8 10^3/uL (4.3-11.0)
--- NOTE | 2020-04-18 06:54 | Anesthesia-Regional Post-Op ---
Regional Patient Condition Mental Status: Alert, Oriented x3 Circulation: Same as Pre-Op Headache: Absent Sensation: Full Recovery Motor Block: Absent Post Op Complications Complications None Follow Up Care/Instructions Patient Instructions None needed. Anesthesia/Patient Condition Patient is doing well, no complaints, stable vital signs, no apparent adverse anesthesia problems. No complications reported per nursing. INDER LOMBARDI CRNA Apr 18, 2020 06:54
--- NOTE | 2020-04-18 07:58 | Postpartum Progress Note ---
Note Note Day # 1 Subjective: Patient is without complaints. Ambulating, voiding. Tolerating a regular diet without nausea or vomiting. Normal lochia. Pain is well controlled with oral pain medications. Objective: Physical Exam: General - Alert and oriented, no apparent distress Abdomen - Soft, appropriately tender to palpation, non-distended, fundus firm at umbilicus Extremities - no edema, negative Cristiano's bilaterally Incision- c/d/i Assessment: POD 1 RLTCS Acute blood loss anemia Plan: Routine care. Encourage breast feeding. Encourage ambulation. Ferrous sulfate supplementation. Plan for discharge tomorrow Vitals - Labs Vital Signs - I&O Vital Signs Date Time Temp Pulse Resp B/P (MAP) Pulse Ox O2 Delivery O2 Flow Rate FiO2 04/18/20 04:45 36.4 85 18 123/67 (85) 99 04/17/20 23:30 36.3 88 18 122/68 (86) 99 04/17/20 21:15 36.2 93 18 122/64 (83) 97 Room Air 04/17/20 17:30 36.6 85 18 128/73 (91) 97 Room Air 04/17/20 14:16 36.3 100 18 117/63 (81) 95 Room Air 04/17/20 12:05 36.4 18 123/84 (97) 100 Room Air 04/17/20 12:05 Room Air 04/17/20 12:00 18 122/86 (98) 100 Room Air 04/17/20 11:55 Room Air 04/17/20 11:50 18 119/84 (96) 100 Room Air 04/17/20 11:44 Room Air 04/17/20 11:40 18 136/89 (105) 99 Room Air 04/17/20 11:30 20 117/73 (88) 99 Room Air 04/17/20 11:30 Room Air 04/17/20 11:25 18 123/72 (89) 100 Room Air 04/17/20 11:15 36.7 16 115/68 (84) 100 Room Air 04/17/20 11:15 Room Air 04/17/20 10:00 36.8 92 18 120/72 (88) Room Air 04/17/20 09:30 93 18 136/86 (103) Room Air 04/17/20 09:00 98 18 128/78 (95) Room Air 04/17/20 08:30 92 18 120/76 (91) Room Air I & O 04/18/20 06:59 Intake Total 6850 ml Output Total 3700 ml Balance 3150 ml Labs Laboratory Tests 04/18/20 06:15: White Blood Count 10.8, Red Blood Count 3.59L, Hemoglobin 10.8L, Hematocrit 32L, Mean Corpuscular Volume 89, Mean Corpuscular Hemoglobin 30, Mean Corpuscular Hemoglobin Concent 34, Red Cell Distribution Width 13.9, Platelet Count 195, Mean Platelet Volume 10.3, Immature Granulocyte % (Auto) 2, Neutrophils (%) (Auto) 67, Lymphocytes (%) (Auto) 22, Monocytes (%) (Auto) 8, Eosinophils (%) (Auto) 2, Basophils (%) (Auto) 0, Neutrophils # (Auto) 7.3, Lymphocytes # (Auto) 2.3, Monocytes # (Auto) 0.8, Eosinophils # (Auto) 0.2, Basophils # (Auto) 0.0, Immature Granulocyte # (Auto) 0.2H JELLY HILLIARD DO Apr 18, 2020 07:58
--- NOTE | 2020-04-18 08:50 | NUR ---
Breast pump to room, instructions given, pt verbalizes understanding. Towels to room for shower. Pt states having issues with infant latching on and would like to speak with [employer] consultant. No further needs at this time.
[2020-04-18] MEDS: HYDROcodone/APAP 5 MG/325 MG (LORTAB) TAB PO PRN (09:45)
[2020-04-18] MEDS: DOCUSATE SODIUM 100 MG (COLACE) CAP PO SCH ×2 (09:45→20:50)
[2020-04-18 09:54] VITALS: BP 116/80
--- NOTE | 2020-04-18 09:54 | NUR ---
AM shift assessment completed and vital signs obtained, see interventions. Plan of care reviewed with patient. Patient verbalizes understanding and questions answered. Scheduled Colace PO given. Lortab 1 PO given for patient's c/o pain rated 3/10. TDAP vaccine administered, see EMAR. VIS provided to patient.
[2020-04-18] MEDS: IBUPROFEN 600 MG (MOTRIN) TAB PO SCH ×3 (11:12→22:24)
[2020-04-18] MEDS ORDERED: IBUPROFEN 600 MG (MOTRIN) TAB PO SCH (12:00)
[2020-04-18 12:36] VITALS: BP 122/65
[2020-04-18 16:43] VITALS: BP 125/70
--- NOTE | 2020-04-18 19:30 | NUR ---
Report to Dianne Mota RN.
[2020-04-18 22:25] VITALS: BP 123/75
[2020-04-19 05:11] VITALS: BP 118/79
[2020-04-19] MEDS: IBUPROFEN 600 MG (MOTRIN) TAB PO SCH ×2 (05:11→13:19)
[2020-04-19] MEDS: METOCLOPRAMIDE 10 MG (REGLAN) TAB PO SCH ×2 (05:11→13:18)
--- NOTE | 2020-04-19 07:56 | Postpartum Progress Note ---
Note Note Day # 2 Subjective: Patient is without complaints. Ambulating, voiding. Tolerating a regular diet without nausea or vomiting. Normal lochia. Pain is well controlled with oral pain medications. Objective: Physical Exam: General - Alert and oriented, no apparent distress Abdomen - Soft, appropriately tender to palpation, non-distended, fundus firm at umbilicus Extremities - no edema, negative Cristiano's bilaterally Incision- c/d/i Assessment: POD 2 RLTCS Plan: Routine care. Encourage breast feeding. Encourage ambulation. Ferrous sulfate supplementation. Plan for discharge today Vitals - Labs Vital Signs - I&O Vital Signs Date Time Temp Pulse Resp B/P (MAP) Pulse Ox O2 Delivery O2 Flow Rate FiO2 04/19/20 05:11 36.5 85 18 118/79 (92) 97 Room Air 04/18/20 22:25 36.7 80 18 123/75 (91) 98 Room Air 04/18/20 16:43 36.5 87 18 125/70 (88) 95 Room Air 04/18/20 12:36 36.0 90 18 122/65 (84) 96 Room Air 04/18/20 09:54 36.2 84 18 116/80 (92) 99 Room Air Labs Microbiology 04/17/20 MRSA Screen - Final, Complete MRSA not isolated JELLY HILLIARD DO Apr 19, 2020 07:56
[2020-04-19] MEDS: DOCUSATE SODIUM 100 MG (COLACE) CAP PO SCH (09:19)
[2020-04-19 09:45] VITALS: BP 126/73
== END 2020-04-19 15:45 | disposition home or self-care (01) | DRG 787 ==
LOC: LDRP 07:08
PROVIDERS: ADMIT Obstetrics & Gynecology; ATTEND Obstetrics & Gynecology
PROC: 10D00Z1 Extraction of Products of Conception, Low, Open Approach (ICD-10-PCS; principal; 2020-04-17 10:07)
DX: O34.211 Maternal care for low transverse scar from previous cesarean delivery (principal); D62 Acute posthemorrhagic anemia; O90.81 Anemia of the puerperium; Z3A.39 39 weeks gestation of pregnancy; Z37.0 Single live birth; Z23 Encounter for immunization
CPT/HCPCS: 36415; 85025; 86850; 86900; 86901; 87081; 90715